=== PATIENT | male | born 1960 | race Caucasian/White ===

== ENCOUNTER 2020-02-28 05:31 | Day surgery (SDC) | payer OTHER ==
[2020-02-23 11:05] LABS: ABSOLUTE EOSINOPHILS # (AUTO) 0.1 10^3/uL (0.0-0.6); ABSOLUTE LYMPHOCYTES (AUTO) 0.9 10^3/uL (0.5-4.7); ABSOLUTE MONOCYTES (AUTO) 0.5 10^3/uL (0.1-1.4); BASOPHILS % (AUTO) 1.1 % (0-2); EOSINOPHILS % (AUTO) 1.3 % (0-6); HEMOGLOBIN 14.9 g/dL (13.5-17.0); LYMPHOCYTES % (AUTO) 20.6 % (13-45); MEAN CORPUSCULAR HEMOGLOBIN 31.2 pg (27.0-33.4); MEAN CORPUSCULAR HGB CONC 33.9 g/dL (32.0-36.0); MEAN CORPUSCULAR VOLUME 92 fl (80-97); MONOCYTES % (AUTO) 11.6 % (3-13); PLATELET COUNT 194 10^3/uL (150-450); RED BLOOD COUNT 4.78 10^6/uL (4.35-5.55); RED CELL DISTRIBUTION WIDTH 13.6 % (11.5-14.0); SEGMENTED NEUTROPHILS % (AUTO) 65.4 % (42-78); TOTAL CELLS COUNTED % (AUTO) 100 %; WHITE BLOOD COUNT 4.6 10^3/uL (4.0-10.5)
[2020-02-23 11:41] LABS: ANION GAP 6 (5-19); BLOOD UREA NITROGEN 19 mg/dL (7-20); CALCIUM 9.7 mg/dL (8.4-10.2); CARBON DIOXIDE 29 mmol/L (22-30); CHLORIDE 104 mmol/L (98-107); GLUCOSE 101 mg/dL (75-110); POTASSIUM 4.8 mmol/L (3.6-5.0)
--- NOTE | 2020-02-23 15:01 | EKG REPORT ---
SEVERITY:- ABNORMAL ECG - SINUS BRADYCARDIA NONSPECIFIC INTRAVENTRICULAR CONDUCTION DELAY : Confirmed by: Frank Gonzalez MD 23-Feb-2020 15:00:14
[~2020-02-28 05:31] MED LIST: CEFAZOLIN 2 GM/D5W RTU 2 GM/50 ML RTUPB IV ONE; CEFAZOLIN 2 GM/D5W RTU 2 GM/50 ML RTUPB IV PRN; HEPARIN SOD (PORCINE) 5,000 UNIT/ML 1 ML VIAL ONE; HEPARIN SOD (PORCINE) 5,000 UNIT/ML 1 ML VIAL SUBCUT PRN; LACTATED RINGERS 1000 ML IV PRN; LIDOCAINE 0.5% INJ-PF (5 MG/ML) 50 ML SDV SUBCUT PRN; RINGERS SOLUTION,LACTATED 1,000 ML IV PRN
[2020-02-28] MEDS ORDERED: FENTANYL CITRATE INJ/PF 100 MCG/2 ML AMPUL ONE (06:21)
[2020-02-28] MEDS ORDERED: FENTANYL CITRATE INJ/PF 250 MCG/5 ML AMPULE ONE (06:21)
[2020-02-28] MEDS ORDERED: DEXAMETHASONE SOD PHOSPHATE INJ 4 MG/1 ML VIAL ONE (06:22)
[2020-02-28] MEDS ORDERED: ONDANSETRON HCL INJ/PF 4 MG/2 ML SDV ONE ×2 (06:22→06:25)
[2020-02-28] MEDS ORDERED: PROPOFOL INJ 200 MG/20 ML VIAL IV ONE (06:22)
[2020-02-28] MEDS ORDERED: MIDAZOLAM 2 MG/2 ML INJ ONE (06:22)
[2020-02-28] MEDS ORDERED: SUGAMMADEX SODIUM 200 MG/2 ML SDV IV ONE (06:22)
[2020-02-28] MEDS ORDERED: BUPIVACAINE HCL 0.25 % INJ/PF (2.5 MG/1 ML) 30 ML VIAL ONE (07:01)
[2020-02-28] MEDS ORDERED: MEPERIDINE HCL/PF INJ 25 MG/1 ML DISP.SYRIN IV PRN (11:10)
[2020-02-28] MEDS ORDERED: FENTANYL CITRATE INJ/PF 100 MCG/2 ML AMPUL IV PRN ×3 (11:10)
[2020-02-28] MEDS ORDERED: PROMETHAZINE HCL INJ 25 MG/1 ML VIAL IV PRN ×2 (11:10)
[2020-02-28] MEDS ORDERED: MORPHINE SULFATE 10 MG/ML INJ IV PRN (11:10)
[2020-02-28] MEDS ORDERED: ONDANSETRON HCL INJ/PF 4 MG/2 ML SDV IV PRN ×2 (11:10→12:58)
[2020-02-28] MEDS ORDERED: DIPHENHYDRAMINE HCL 50 MG/ML VIAL IV PRN (11:10)
[2020-02-28] MEDS ORDERED: DIPHENHYDRAMINE HCL 25 MG CAPSULE PO PRN (13:10)
--- NOTE | 2020-02-28 13:27 | PDOC PROGRESS REPORT ---
Subjective Progress Note for:: 02/28/20 Subjective:: No acute changes/events. Pain controlled, no N/V. Reason For Visit: C61 MALIGNANT NEOPLASM OF PROSTATE Physical Exam Vital Signs: Temp Pulse Resp BP Pulse Ox 97.4 F 55 L 14 142/99 H 100 02/28/20 13:04 02/28/20 13:09 02/28/20 13:09 02/28/20 13:09 02/28/20 13:09 Intake & Output 02/27/20 02/28/20 02/29/20 06:59 06:59 06:59 Intake Total 0 Balance 0 Weight 77.11 kg General appearance: PRESENT: no acute distress Head exam: PRESENT: atraumatic Pulses: PRESENT: normal dorsalis pedis pul Vascular exam: PRESENT: normal capillary refill GI/Abdominal exam: PRESENT: other - Soft, aTTP over incisions, ND, incisions well approximated without e/i/d, drain with minimal s/s output, no r/g/peritoneal signs Gentrourinary exam: PRESENT: indwelling catheter - urine pink tinged, guy s ecured, no clots Extremities exam: PRESENT: full ROM. ABSENT: calf tenderness - no c/c/e, clubbing, pedal edema Results Laboratory Results: 02/23/20 10:37 02/23/20 10:37 02/28/20 05:55 Blood Type O POSITIVE Antibody Screen NEGATIVE Assessment & Plan - Diagnosis (1) Prostate cancer Is this a current diagnosis for this admission?: Yes Plan: s/p RALP 02/28/20 - Pain meds as written - ICS, pulm toilet, early ambulation - Clears, ADAT to reg as tolerated - Critical guy, do not remove - LEANDRO Cr morning after surgery, likely send home with LEANDRO drain in place - SQH, SCD's - Anticipate d/c home POD#1 if continues to do well - Time Time Spent: 30 to 50 Minutes Medications reviewed and adjusted accordingly: Yes Anticipated Discharge Disposition: Home, Self Care Anticipated Discharge Timeframe: within 24 hours - Inpatient Certification Based on my medical assessment, after consideration of the patient's comorbidities, presenting symptoms, or acuity I expect that the services needed warrant INPATIENT care.: Yes I certify that my determination is in accordance with my understanding of Medicare's requirements for reasonable and necessary INPATIENT services [42 CFR 412.3e].: Yes - Plan Summary Plan Summary: as above
[2020-02-28] MEDS: NORMAL SALINE 1000 ML 1,000 ML IV PRN ×2 (14:18→22:27)
[2020-02-28] MEDS: OXYCODONE HCL IR 5 MG TABLET PO PRN ×3 (14:21→22:26)
[2020-02-28] MEDS: HEPARIN SOD (PORCINE) 5,000 UNIT/ML 1 ML VIAL SUBCUT SCH ×2 (14:28→22:26)
[2020-02-28] MEDS ORDERED: NEOSTIGMINE METHYLSULFATE 10 MG/10 ML VIAL ONE (14:32)
[2020-02-28] MEDS ORDERED: ROCURONIUM BROMIDE INJ 50 MG/5 ML VIAL IV ONE (14:32)
[2020-02-28] MEDS ORDERED: GLYCOPYRROLATE 1 MG/5 ML VIAL ONE (14:32)
[2020-02-28] MEDS ORDERED: SUCCINYLCHOLINE CHLORIDE INJ 200 MG/10 ML VIAL ONE (14:32)
[2020-02-28] MEDS: MORPHINE SULFATE 10 MG/ML INJ IV PRN ×2 (15:41→20:46)
[2020-02-28] MEDS: DOCUSATE SODIUM 100 MG CAPSULE PO SCH (18:12)
[2020-02-29] MEDS: OXYCODONE HCL IR 5 MG TABLET PO PRN ×4 (03:49→22:24)
[2020-02-29 05:42] LABS: BLOOD UREA NITROGEN 18 mg/dL (7-20); CALCIUM 8.3 mg/dL (8.4-10.2); GLUCOSE 115 mg/dL (75-110); POTASSIUM 4.4 mmol/L (3.6-5.0)
[2020-02-29 05:47] LABS: ANION GAP 5 (5-19); CARBON DIOXIDE 27 mmol/L (22-30); CHLORIDE 105 mmol/L (98-107)
[2020-02-29] MEDS: HEPARIN SOD (PORCINE) 5,000 UNIT/ML 1 ML VIAL SUBCUT SCH ×3 (05:53→22:26)
[2020-02-29] MEDS: NORMAL SALINE 1000 ML 1,000 ML IV PRN ×2 (08:01→16:07)
--- NOTE | 2020-02-29 08:27 | PDOC PROGRESS REPORT ---
Subjective Progress Note for:: 02/29/20 Subjective:: No acute changes/events. Pain controlled, no N/V. Had some significant bladder spasms overnight. Tolerating PO clears, no flatus/BM yet. Has not ambulated yet. Reason For Visit: C61 MALIGNANT NEOPLASM OF PROSTATE Physical Exam Vital Signs: Temp Pulse Resp BP Pulse Ox 97.9 F 56 L 14 124/71 99 02/29/20 04:43 02/29/20 04:43 02/29/20 04:43 02/29/20 04:43 02/29/20 04:43 Intake & Output 02/28/20 02/29/20 03/01/20 06:59 06:59 06:59 Intake Total 0 3910 Output Total 3138 Balance 0 772 Weight 77.11 kg 77.11 kg General appearance: PRESENT: no acute distress Head exam: PRESENT: atraumatic Mouth exam: PRESENT: moist Respiratory exam: PRESENT: symmetrical Cardiovascular exam: PRESENT: other GI/Abdominal exam: PRESENT: other - Soft, aTTP, ND, incisions well approximated without e/i/d, LEANDRO drain minimal s/s output, no r/g/peritoneal signs Gentrourinary exam: PRESENT: indwelling catheter - urine clear, yellow, secured Extremities exam: PRESENT: other - no c/c/e Skin exam: PRESENT: normal color Results Laboratory Results: 02/23/20 10:37 02/29/20 04:50 02/29/20 04:50 Sodium 136.9 L Potassium 4.4 Chloride 105 Carbon Dioxide 27 Anion Gap 5 BUN 18 Creatinine 1.12 Est GFR ( Amer) > 60 Glucose 115 H Calcium 8.3 L Assessment & Plan - Diagnosis (1) Prostate cancer Is this a current diagnosis for this admission?: Yes Plan: Prostate cancer s/p RALP 02/28/20 - Pain meds as written - ICS, pulm toilet, early ambulation - ADAT to regular diet as tolerated - Critical guy, do not remove - LEANDRO Cr tomorrow, if negative will remove LEANDRO prior to d/c - SQH, SCD's - Anticipate d/c home POD#2 if continues to do well--will keep for pain control, bladder spasm control and advancement of diet today - Time Time Spent: 30 to 50 Minutes Medications reviewed and adjusted accordingly: Yes Anticipated Discharge Disposition: Home, Self Care Anticipated Discharge Timeframe: within 24 hours - Inpatient Certification Based on my medical assessment, after consideration of the patient's co morbidities, presenting symptoms, or acuity I expect that the services needed warrant INPATIENT care.: Yes Medical Necessity: Risk of Complication if Not Cared For in Hospital - pain control, advancement of diet after surgery Post Hospital Care: D/C or Transfer Summary - Plan Summary Plan Summary: as above
[2020-02-29] MEDS: DOCUSATE SODIUM 100 MG CAPSULE PO SCH ×3 (10:09→18:00)
[2020-02-29] MEDS: OXYBUTYNIN CHLORIDE 5 MG TABLET PO PRN ×2 (10:11→17:36)
[2020-03-01] MEDS: NORMAL SALINE 1000 ML 1,000 ML IV PRN (01:17)
[2020-03-01] MEDS: OXYCODONE HCL IR 5 MG TABLET PO PRN ×2 (03:24→11:22)
[2020-03-01] MEDS: HEPARIN SOD (PORCINE) 5,000 UNIT/ML 1 ML VIAL SUBCUT SCH ×2 (06:04→14:00)
[2020-03-01] MEDS: DOCUSATE SODIUM 100 MG CAPSULE PO SCH ×2 (10:00→18:00)
--- NOTE | 2020-03-01 10:28 | PDOC PROGRESS REPORT ---
Subjective Progress Note for:: 03/01/20 Subjective:: No acute changes/events. Pain controlled, no N/V, ambulating, passing flatus no BM yet, tolerating regular diet without N/V, tolerating guy. Reason For Visit: C61 MALIGNANT NEOPLASM OF PROSTATE Physical Exam Vital Signs: Temp Pulse Resp BP Pulse Ox 98.4 F 60 18 122/65 100 03/01/20 08:02 03/01/20 08:02 03/01/20 08:02 03/01/20 08:02 03/01/20 08:02 Intake & Output 02/29/20 03/01/20 03/02/20 06:59 06:59 06:59 Intake Total 3910 2878 Output Total 3138 4315 Balance 772 -1437 Weight 77.11 kg 80.7 kg General appearance: PRESENT: no acute distress Head exam: PRESENT: atraumatic Mouth exam: PRESENT: moist Respiratory exam: PRESENT: symmetrical Cardiovascular exam: PRESENT: RRR - PPP Pulses: PRESENT: normal dorsalis pedis pul Vascular exam: PRESENT: normal capillary refill Rectal exam: PRESENT: other - Soft, aTTP over incisions, ND, inc well approximated without e/i/d, no r/g/peritoneal signs Gentrourinary exam: PRESENT: indwelling catheter - urine clear, yellow, secured Extremities exam: PRESENT: other - no c/c/e Results Laboratory Results: 02/23/20 10:37 02/29/20 04:50 Assessment & Plan - Diagnosis (1) Prostate cancer Is this a current diagnosis for this admission?: Yes Plan: Prostate cancer s/p RALP 02/28/20 - Pain meds as written - ICS, pulm toilet, early ambulation - ADAT to regular diet as tolerated - Critical guy, do not remove - LEANDRO removed at bedside today - SQH, SCD's - DCP: d/c home today - Time Time Spent: 30 to 50 Minutes Anticipated Discharge Disposition: Home, Self Care Anticipated Discharge Timeframe: within 24 hours - Inpatient Certification Based on my medical assessment, after consideration of the patient's comorbidities, presenting symptoms, or acuity I expect that the services needed warrant INPATIENT care.: Yes Medical Necessity: Need for Pain Control - plan for discharge today Post Hospital Care: D/C or Transfer Summary - Plan Summary Plan Summary: D/c home today
--- NOTE | 2020-03-01 10:44 | PDOC DISCHARGE SUMMARY ---
General - Admit/Disc Date/PCP Admission Date/Primary Care Provider: LINO COATES NP Discharge Date: 03/01/20 - Discharge Diagnosis Final Diagnosis: Prostate cancer - Additional Information Discharge Activity: No Driving - while on narcotic pain medication, No Lifting Over 10 Pounds, Slowly Increase Activity, Walk Frequently Referrals: LINO COATES NP [Primary Care Provider] - Home Medications: Aspirin [Aspir-Low] 81 mg PO DAILY 02/23/20 Flecainide Acetate [Tambocor 100 Mg Tablet] 100 mg PO DAILY 02/23/20 History of Present Illiness History of Present Illness: APRIL GUZMAN is a 59 year old male Physical Exam Vital Signs: Temp Pulse Resp BP Pulse Ox 98.4 F 60 18 122/65 100 03/01/20 08:02 03/01/20 08:02 03/01/20 08:02 03/01/20 08:02 03/01/20 08:02 Intake & Output 02/29/20 03/01/20 03/02/20 06:59 06:59 06:59 Intake Total 3910 2878 Output Total 3138 4315 Balance 772 -1437 Weight 77.11 kg 80.7 kg General appearance: PRESENT: no acute distress, well-developed, well-nourished Head exam: PRESENT: atraumatic, normocephalic Eye exam: PRESENT: conjunctiva pink, EOMI, PERRLA. ABSENT: scleral icterus Ear exam: PRESENT: normal external ear exam Mouth exam: PRESENT: moist, tongue midline Neck exam: PRESENT: full ROM Respiratory exam: PRESENT: symmetrical. ABSENT: rales, rhonchi, wheezes Cardiovascular exam: PRESENT: RRR. ABSENT: diastolic murmur, rubs, systolic murmur Pulses: PRESENT: normal dorsalis pedis pul Vascular exam: PRESENT: normal capillary refill GI/Abdominal exam: PRESENT: normal bowel sounds, soft, tenderness - aTTP over incisions. ABSENT: distended, guarding, mass, organolmegaly, rebound Rectal exam: PRESENT: deferred Gentrourinary exam: PRESENT: indwelling catheter Extremities exam: PRESENT: full ROM. ABSENT: calf tenderness, clubbing, pedal edema Neurological exam: PRESENT: alert, awake, oriented to person, oriented to place, oriented to time, oriented to situation, CN II-XII grossly intact. ABSENT: motor sensory deficit Psychiatric exam: PRESENT: appropriate affect, normal mood. ABSENT: homicidal ideation, suicidal ideation Skin exam: PRESENT: dry, intact, warm. ABSENT: cyanosis, rash Results Laboratory Results: WBC 4.6 10^3/uL (4.0-10.5) 02/23/20 10:37 RBC 4.78 10^6/uL (4.35-5.55) 02/23/20 10:37 Hgb 14.9 g/dL (13.5-17.0) 02/23/20 10:37 Hct 44.0 % (37.9-51.0) 02/23/20 10:37 MCV 92 fl (80-97) 02/23/20 10:37 MCH 31.2 pg (27.0-33.4) 02/23/20 10:37 MCHC 33.9 g/dL (32.0-36.0) 02/23/20 10:37 RDW 13.6 % (11.5-14.0) 02/23/20 10:37 Plt Count 194 10^3/uL (150-450) 02/23/20 10:37 Lymph % (Auto) 20.6 % (13-45) 02/23/20 10:37 Walker % (Auto) 11.6 % (3-13) 02/23/20 10:37 Eos % (Auto) 1.3 % (0-6) 02/23/20 10:37 Baso % (Auto) 1.1 % (0-2) 02/23/20 10:37 Absolute Neuts (auto) 3.0 10^3/uL (1.7-8.2) 02/23/20 10:37 Absolute Lymphs (auto) 0.9 10^3/uL (0.5-4.7) 02/23/20 10:37 Absolute Monos (auto) 0.5 10^3/uL (0.1-1.4) 02/23/20 10:37 Absolute Eos (auto) 0.1 10^3/uL (0.0-0.6) 02/23/20 10:37 Absolute Basos (auto) 0.0 10^3/uL (0.0-0.2) 02/23/20 10:37 Seg Neutrophils % 65.4 % (42-78) 02/23/20 10:37 Sodium 136.9 mmol/L (137-145) L 02/29/20 04:50 Potassium 4.4 mmol/L (3.6-5.0) 02/29/20 04:50 Chloride 105 mmol/L (98-107) 02/29/20 04:50 Carbon Dioxide 27 mmol/L (22-30) 02/29/20 04:50 Anion Gap 5 (5-19) 02/29/20 04:50 BUN 18 mg/dL (7-20) 02/29/20 04:50 Creatinine 1.12 mg/dL (0.52-1.25) 02/29/20 04:50 Est GFR ( Amer) > 60 (>60) 02/29/20 04:50 Est GFR (MDRD) Non-Af > 60 (>60) 02/29/20 04:50 Glucose 115 mg/dL (75-110) H 02/29/20 04:50 Calcium 8.3 mg/dL (8.4-10.2) L 02/29/20 04:50 Urine Creatinine < 3.2 mg/dL (22-328) L 03/01/20 03:20 COVID-19 Source NASOPHARYNGEAL 02/23/20 10:35 COVID-19 (CECIL) NOT DETECTED 02/23/20 10:35 Blood Type O POSITIVE 02/28/20 05:55 Antibody Screen NEGATIVE 02/28/20 05:55 Impressions: Admitted for surgery which was completed without complication. Prior to discharge, the patient was afebrile with normal vital signs. He ambulated, his pain was controlled on PO medication, tolerated a diet, and passed flatus. F/u as scheduled. Plan Health Concerns: None Plan of Treatment: Routine post-op Goals: F/u next week for guy removal Time Spent: Less than 30 Minutes
[2020-03-01] MEDS: OXYBUTYNIN CHLORIDE 5 MG TABLET PO PRN (11:23)
[2020-03-01] MEDS ORDERED: FLECAINIDE ACETATE 100 MG TABLET PO SCH (12:00)
[2020-03-01 17:15] VITALS: BP 124/71
--- NOTE | 2020-03-06 19:32 | Operative Report ---
Operative Report DATE OF SURGERY: 02/28/20 Operative Report: Pre-operative Diagnosis: C61 Malignant Neoplasm of the Prostate Post-operative Diagnosis: Same as above Procedure: 1. Robotic-assisted laparoscopic radical prostatectomy 2. Incisional blocks for post-operative pain relief Primary Surgeon: Burak Wall M.D. Secondary Surgeon: Jayme Hedrick M.D. Operative Findings: No evidence of obvious cancer extension, lymphadenopathy or metastatic disease Specimens: 1. Bethanie-prostatic fat and lymph nodes 2. Prostate, seminal vesicles, and ampullary vas deferens EBL: 150 mL Anesthesia: GETA, incisional blocks for post-operative pain relief Drains/tubes: 18 Fr 2-way guy catheter Complications: None Condition on Transfer: Stable Indications for procedure: This is a 59 year-old male who has cancer of the prostate with the Samreen score of 7. After discussion of the risks, benefits and alternatives to the procedure including but not limited to urinary incontinence, impotence, bleeding, infection, injury to adjacent structures or organs systems, pain, recurrence, need for adjuvant treatment, rectal injury, ileus, small bowel obstruction, [place], CVA, DVT, PE and the patient elected to proceed with the above procedure. Description of Procedure: After satisfactory induction of general endotracheal anesthesia, the patient was placed in the dorsal lithotomy position and prepped and draped in the normal st erile fashion for prostatectomy. A pre-operative timeout was performed; the correct patient, site and procedure were identified. Pre-operative antibiotics with Ancef 2 grams were given within 30 minutes of the start time of the case, 5000 Units of subcutaneous heparin were administered in pre-operative holding, SCDs were on and functioning throughout the case. All pressure points were padded, all fire hazards were identified. First, a Verses needle was passed into the abdomen in the midline 2 cm superior to the umbilicus and the drop test was positive for intra-abdominal placement without injury to bowel, blood vessels and organs. The abdomen was then insufflated to 15 mm Hg pressure with an opening pressure of less than 6 mm Hg. The robotic were then placed. The camera port was placed just above the umbilicus, 17 cm superior to the pubic symphysis. Two 8 mm ports were placed 8 cm from the midline at the upper portion of the umbilicus. A fourth 8 mm port was then placed additional 8 cm lateral to the left-hand port. A 12 mm resident care assistant port was then placed in the right lower abdomen 8 cm below the right-hand port. A 5 mm port was then placed just cephalad and medial to the resident care assistant port for irrigation and suction. The da Lor robot was then docked to the patient and the table then maneuvered into the steep Trendelenburg position of 28 degrees. The 0-degree camera lens was placed in the third arm. Monopolar scissors were placed in the right hand with a fenestrated bipolar in the left hand, and a Pro- Grasp forceps in the 4th arm. We then proceeded with radical prostatectomy. Attention was turned to the left side and because of some adhesions of the colon to the left pelvic sidewall these adhesions were taken down sharply. An incision was then made in the peritoneum through and lateral to the right median umbilical ligament and extended down to just lateral to the right inguinal ring. A similar incision was then made lateral to the left medial umbilical ligament and carried down to the symphysis. Then attention was turned to dropping the bladder and the medial umbilical ligaments, which were transected below the umbilicus. Then, the retro-pubic space was entered sharply with cautery. The fat overlying the prostate was removed and passed off for specimen. Next, the endopelvic fascia was opened on both sides of the prostate sharply and carried down to the apex of the prostate. A 2-0 V-Loc sutures was then used as a DVC obstructing stitch and anchored to the posterior pubic symphysis. Attention was then turned to the bladder neck where the bladder neck was incised beginning in the midline and carried laterally to drop the bladder from the base of prostate. The urethra was then identified and transected in the midline and the catheter was pulled out to be used for traction. The prostate and the bladder neck posteriorly were incised and the seminal vesicles were identified on both sides along with the ampullae of the vas deferens. The ampullae of the vas deferens were individually cauterized, transected and used for traction. The seminal vesicles were then dissected free sharply and lifted superiorly exposing the pre-rectal fat plane. This plane was developed to identify the pedicles on both sides of the prostate which were taken down with Hem-o-lock clips and sharp dissection. The Veil of Aphrodite was identified bilaterally and sharply dissected away from the prostate and displaced laterally so as to avoid injury to the bethanie-prostatic nerves. Next, the dissection was carried all the way to the apex of the prostate on both sides. The dorsal venous complex was then transected and the urethra identified. The apex of the prostate was identified and the urethra was transected distal to the apex of the prostate. The rectourethralis musculature was then incised and the prostate was freed. The prostate was then placed in a specimen bag and moved to the side of the field. No significant bleeding was appreciated this time. Next, a 2-0 V-loc Aiden stitch was placed in the Den[place]villiers fascia and used to re-approximate the bladder neck to the urethral stump. The anastomosis of the bladder neck and urethra was accomplished with 2-0 V-loc suture in the double- armed fashion of Jay Loya. The anastomosis began by placing the sutures in the midline of the bladder posteriorly and then these were passed through the respective positions in the urethra starting posteriorly and then progressing anteriorly until a circumferential closure was achieved. Once the sutures were cinched down and tied an 18 [place]ian guy catheter was placed without difficulty and the balloon was inflated with 10 mL of sterile water. This was then placed to a gravity bag and noted to be draining well. Next, a leak test was performed with 200-300 mL of normal saline and this demonstrated no evidence of an anastomotic leak. The bethanie-prostatic gutters were then suctioned ensure there was no active bleeding. The suture on the specimen bag was then passed out through the camera port. The abdomen was re-inspected and it was noted that there was no evidence of active bleeding nor organ injury. The robot was undocked and the ports were removed under direct vision. The patient was then placed in the supine position. The midline port site was then incised to allow removal of the specimen bag. The rectus fascia was closed with 0-Vicryl running sutures. The incisions were then sealed with skin glue and running 4-0 monocryl subcuticular sutures. This concluded the procedure and the patient was cleaned off, awoken from anesthesia and returned to PACU in stable condition having tolerated the entirety of the case without complication. Sponge, needle and instrument counts were correct x2. PREOPERATIVE DIAGNOSIS: C61 Malignant Neoplasm of the Prostate POSTOPERATIVE DIAGNOSIS: C61 Malignant Neoplasm of the Prostate OPERATION: Robotic assisted laparoscopic radical prostatectomy (see above) SURGEON: BURAK WALL 1ST INTERIOR DESIGN PROFESSIONAL: JAYME HEDRICK 2ND Rn Wound: ANGELITA SANCHEZ ANESTHESIA: GA TISSUE REMOVED OR ALTERED: See dictation COMPLICATIONS: None ESTIMATED BLOOD LOSS: 150
== END 2020-03-01 20:23 | disposition home or self-care (01) ==
LOC: OROUT 05:31 → EDSTATUS 07:30 → 5 13:39 → OROUT 03-01 20:23
PROVIDERS: ATTEND Urology
DX: C61 Malignant neoplasm of prostate (principal); Z71.9 Counseling, unspecified; Z03.818 Encounter for observation for suspected exposure to other biological agents ruled out
CPT/HCPCS: 55866; S2900; 36415; 80048; 82570; 85025; 865; 86850; 86900; 86901; 87635; 88305; 93005; 93010; C1758; C9803; J0330; J0690; J1100; J1644; J2250; J2270; J2405; J2704; J2710; J3010; J3490; J7030